=== PATIENT | female | born 1980 ===

== ENCOUNTER 2022-08-07 22:53 | Inpatient (IN) ==
[2022-08-07 23:17] LABS: ABS Basophils 0.1 10^3/ul (0-0.2); ABS Lymphocytes 1.5 10^3/ul (1.0-4.8); ABS Monocytes 0.6 10^3/ul (0-0.8); ABS Neutrophils 9.7 10^3/ul (1.5-7.7); Eosinophil % 0.4 %; Hematocrit 50 % (35-47); Hemoglobin 16.4 g/dL (12.0-16.0); Lymphocyte % 12.3 %; Mean Corpuscular HGB Conc 33 g/dL (31-36); Mean Corpuscular Hemoglobin 26 pg (27-31); Mean Corpuscular Volume 79 fL (80-97); Mean Platelet Volume 6.7 fL (7.4-10.4); Platelet Count 394 10^3/uL (150-450); Red Blood Count 6.33 10^6 /uL (3.70-4.87); Red Cell Distribution Width 16 % (10-15); White Blood Count 11.8 10^3/uL (3.5-10.8)
[2022-08-08 00:03] LABS: Albumin 4.6 g/dL (3.2-5.2); Calcium 9.9 mg/dL (8.6-10.3); Globulin 2.3 g/dL (2-4); Potassium 4.5 mmol/L (3.5-5.0); Total Bilirubin 0.9 mg/dL (0.2-1.0); Total Protein 6.9 g/dL (6.4-8.9); eGFR CKD-EPI 79.8 (>60)
[2022-08-08 00:48] LABS: High Sensitivity Troponin 1 Hr 86 pg/mL (<15)
[2022-08-08 02:38] LABS: HDL Cholesterol 44.7 mg/dL
[2022-08-08 02:53] LABS: TSH Ultra Thyroid Stim Horm 4.09 mcIU/mL (0.34-5.60)
[2022-08-08] MEDS: Enoxaparin 100 MG/ML SYR SUBCUT SCH ×2 (07:16→15:45)
[2022-08-08 11:23] LABS: Calcium 9.1 mg/dL (8.6-10.3); eGFR CKD-EPI 110.1 (>60)
[2022-08-08] MEDS ORDERED: Dextrose 50% Syringe 50 ml 25 GM/50 ML SYRINGE IV PUSH PRN (12:16)
[2022-08-09] MEDS: Enoxaparin 100 MG/ML SYR SUBCUT SCH ×2 (03:24→14:53)
[2022-08-09 05:35] LABS: Hematocrit 47 % (35-47); Hemoglobin 15.6 g/dL (12.0-16.0); Mean Corpuscular HGB Conc 33 g/dL (31-36); Mean Corpuscular Hemoglobin 26 pg (27-31); Mean Corpuscular Volume 79 fL (80-97); Mean Platelet Volume 6.4 fL (7.4-10.4); Platelet Count 432 10^3/uL (150-450); Red Blood Count 5.95 10^6 /uL (3.70-4.87); Red Cell Distribution Width 16 % (10-15); White Blood Count 10.4 10^3/uL (3.5-10.8)
[2022-08-09 05:50] LABS: Calcium 9.3 mg/dL (8.6-10.3); eGFR CKD-EPI 110.1 (>60)
[2022-08-10] MEDS: Enoxaparin 100 MG/ML SYR SUBCUT SCH (03:29)
[2022-08-10 17:09] VITALS: BP 127/84
== END 2022-08-10 16:44 | disposition home or self-care (01) | DRG 203 ==
LOC: ED 22:53 → EDHOLD 22:53 → SUATTDRO 08-08 02:03 → MEDTELE 08-08 12:36
PROVIDERS: ADMIT Internal Medicine; ATTEND Hospitalist